=== PATIENT | female | born 1965 | race Caucasian/White ===

== ENCOUNTER 2019-10-26 20:17 | Inpatient (IN) | payer OTHER ==
[~2019-10-26] VITALS: Ht 172.7 cm; Wt 113.4 kg
[2019-10-26 20:22] VITALS: BP 124/67
--- NOTE | 2019-10-26 20:31 | NUR ---
PT TAKEN TO BED 3
--- NOTE | 2019-10-26 20:40 | NUR ---
54 Y/O FEMALE PRESENTS TO ER WITH RIGHT FOOT SWELLING, PAIN, AND MINIMALLY VISCOUS YELLOWISH, RED DRAINAGE FROM RIGHT BABY TOE. PT DENIES INJURY. C/O OF PAIN 04/02. PT STATES SHE LANCED AREA NEAR BABY TOE AND DRAINED, BUT FOOT IS STILL IN PAIN, AND OOZING. PT STATES SHE USED EPSOM SALT BATH, NEOSPORIN, RUBBING ALCOHOL, AND PEROXIDE, WITH NO RELIEF. DENIES SOB, COUGH. R/R EQUAL, AND UNLABORED. WILL CONTINUE TO MONITOR, SIDE RAIL X1 PMH: DM; LYME DISEASE; NEUROPATHY; HYPERLIPIDEMIA; ARTHRITIS; BRAIN TUMOR; THYROIDECTOMY/THYROID CANCER ALLERGIES: TYLENOL W/CODEINE
--- NOTE | 2019-10-26 21:10 | NUR ---
Dr. Robin examining patient.
[2019-10-26] MEDS ORDERED: MORPHINE SULFATE 4 MG/ML SYR IVP ONE (21:25)
[2019-10-26] MEDS ORDERED: NACL 0.9% IV ONE (21:25)
[2019-10-26] MEDS ORDERED: VANCOMYCIN 1,000 MG in DEXTROSE 5% 250 ML IV ONE (21:25)
[2019-10-26] MEDS ORDERED: VANCOMYCIN 1,000 MG VIAL ONE (21:51)
[2019-10-26 22:07] LABS: BASOPHILS # (AUTO) 0.4 K/uL (0.00-0.22); BASOPHILS % (AUTO) 2.1 % (0.0-2.0); EOSINOPHILS # (AUTO) 0.1 K/uL (0-0.4); EOSINOPHILS % (AUTO) 0.5 % (0.0-4.0); HEMATOCRIT 46.3 % (36-48); HEMOGLOBIN 15.3 g/dL (12.0-16.0); LYMPHOCYTES # (AUTO) 2.3 K/uL (2.5-16.5); LYMPHOCYTES % (AUTO) 13.5 % (20.5-51.1); MEAN CORPUSCULAR HEMOGLOBIN 28 pg (27-31); MEAN CORPUSCULAR HGB CONC 33 g/dL (33-37); MEAN CORPUSCULAR VOLUME 85.8 fL (80-94); MONOCYTES # (AUTO) 1.1 K/uL (0.8-1.0); MONOCYTES % (AUTO) 6.5 % (1.7-9.3); NEUTROPHILS # (AUTO) 13.2 K/uL (1.8-7.7); NEUTROPHILS % (AUTO) 77.4 % (42.2-75.2); PLATELET COUNT (AUTO) 307 K/uL (140-450); RED BLOOD CELL COUNT(AUTO) 5.39 MIL/uL (4.20-5.40); RED CELL DISTRIBUTION WIDTH 14.4 % (11.6-13.7)
[2019-10-26] MEDS ORDERED: HYDROcodone/APAP 5/325 MG 1 TAB TAB PO PRN (22:15)
[2019-10-26] MEDS ORDERED: ACETAMINOPHEN 325 MG TAB PO PRN (22:15)
[2019-10-26] MEDS ORDERED: DOCUSATE SODIUM 100 MG GELCAP PO PRN (22:15)
[2019-10-26] MEDS ORDERED: ONDANSETRON 4 MG/2 ML VIAL IM/IVP PRN (22:15)
[2019-10-26] MEDS ORDERED: DEXTROSE 50% 50 ML SYR IVP PRN (22:20)
[2019-10-26 22:23] LABS: ALBUMIN 3.1 g/dL (3.4-5.0); ANION GAP 15.9 (8-16); CARBON DIOXIDE 26.2 mmol/L (21-32); CREATININE 0.9 mg/dL (0.6-1.3); POTASSIUM 4.1 mmol/L (3.5-5.1); TOTAL BILIRUBIN 0.5 mg/dL (0.0-1.0)
[2019-10-26 22:42] LABS: PROTHROMBIN TIME 9.6 secs (10.8-13.4)
[2019-10-26 22:53] LABS: PHOSPHORUS 3.2 mg/dL (2.5-4.9); THYROID STIMULATING HORMONE 0.02 uIU/mL (0.34-3.74)
--- NOTE | 2019-10-26 23:10 | NUR ---
PT STATES PAIN UNRELIEVED, AFTER ADMINISTRATION OF 4 MG OF MORPHINE. PAIN 10/10. DR LIN MADE AWARE.
[2019-10-26 23:23] LABS: APPEARANCE,URINE CLEAR (CLEAR); BILIRUBIN,URINE NEGATIVE (NEGATIVE); BLOOD, URINE NEGATIVE (NEGATIVE); COLOR,URINE DARK YELLOW (YELLOW); LEUKOCYTE ESTERASE ,URINE NEGATIVE (NEGATIVE); NITRITE, URINE NEGATIVE (NEGATIVE); PH,URINE 5.5 (5.0-9.0); UGLUCOSE 3+ (NEGATIVE)
[2019-10-26 23:34] LABS: FINE GRANULAR CASTS,URINE 0-10 /LPF (None Seen)
[2019-10-26 23:40] LABS: BARBITURATE, URINE NEGATIVE ng/ml (NEG <=200)
--- NOTE | 2019-10-26 23:40 | NUR ---
RECEIVED FROM ED PT AAO X 4, PT AMBULATORY; W/ CELLULITIS FOOT/ANKLE AND DIABETIC ULCER ON THE R 5TH TOE. W/ 1 SCAB ON THE RIGHT SOLE; AND 2 SCABS ON THE LEFT SOLE OF THE FOOT. PT W/ ONGOING NS IVF STILL INFUSING W/ IV SITE ON THE RIGHT AC G 22, W/ ORDERS TO CONTINUE IVF FLUID OF TOTAL 3L TO BE INFUSED BOLUS. PT ORIENTED TO UNIT; POC DISCUSSED. PLACED IN THE LOW BED. CALL LIGHT W/IN REACH.
--- NOTE | 2019-10-26 23:40 | NUR ---
Patient will be admitted to care of DR. SWEENEY. Admited to MED SURG. Will go to room 111A. Belongings list completed. Report to ELENA MORENO.
[2019-10-26 23:41] LABS: BENZODIAZEPINE, URINE NEGATIVE ng/mL (NEG <=200); CANNABINOID, URINE NEGATIVE ng/mL (NEG <=50); COCAINE, URINE NEGATIVE ng/mL (NEG <=300); OPIATE, URINE POSITIVE ng/mL (NEG <=2000); PHENCYCLIDINE SCREEN,URINE NEGATIVE ng/mL (NEG <=25)
[2019-10-27] VITALS: BP 122/70
--- NOTE | 2019-10-27 | NUR ---
DR. ZAPATA AT BEDSIDE, HX AND PHYSICAL DONE. PHOTO TAKEN ON THE RIGHT FOOT CELLULITIS AND R 5TH TOE ULCER. MRSA SWAB DONE
[2019-10-27] MEDS ORDERED: VANCOMYCIN PER PHARMACY MC PRN (01:00)
[2019-10-27] MEDS ORDERED: DULO60EC PO (01:03)
[2019-10-27] MEDS ORDERED: MSCON15 PO (01:03)
[2019-10-27] MEDS ORDERED: ROSU10TA34 PO (01:03)
[2019-10-27] MEDS ORDERED: BACL10TA4 PO (01:03)
[2019-10-27] MEDS ORDERED: METF1000 PO (01:03)
[2019-10-27] MEDS ORDERED: LEVO0.124 PO (01:03)
[2019-10-27] MEDS ORDERED: TRAZ-343 PO (01:03)
[2019-10-27] MEDS ORDERED: FLUCONAZOLE 100 MG TAB PO SCH (01:40)
[2019-10-27] MEDS: NACL 0.9% 1,000 ML IV SCH ×2 (02:11→14:52)
--- NOTE | 2019-10-27 02:12 | NUR ---
STARTED THE IVF AT 60 ML/ HR. 3 LITERS ORDERED AT THE EMERGENCY DEPT AND THE NS 3 L HAD JUST FINISHED NOW
[2019-10-27] MEDS ORDERED: cefTRIAXone 1,000 MG VIAL ONE (02:24)
[2019-10-27] MEDS ORDERED: LEVOTHYROXINE 0.112 MG TAB ONE (05:21)
[2019-10-27 05:26] LABS: BASOPHILS # (AUTO) 0.2 K/uL (0.00-0.22); BASOPHILS % (AUTO) 1.8 % (0.0-2.0); EOSINOPHILS # (AUTO) 0.1 K/uL (0-0.4); HEMATOCRIT 40.2 % (36-48); HEMOGLOBIN 12.9 g/dL (12.0-16.0); LYMPHOCYTES # (AUTO) 1.8 K/uL (2.5-16.5); LYMPHOCYTES % (AUTO) 13.6 % (20.5-51.1); MEAN CORPUSCULAR HEMOGLOBIN 28 pg (27-31); MEAN CORPUSCULAR HGB CONC 32 g/dL (33-37); MEAN CORPUSCULAR VOLUME 86.8 fL (80-94); MONOCYTES % (AUTO) 7.7 % (1.7-9.3); NEUTROPHILS # (AUTO) 9.8 K/uL (1.8-7.7); NEUTROPHILS % (AUTO) 75.9 % (42.2-75.2); PLATELET COUNT (AUTO) 256 K/uL (140-450); RED BLOOD CELL COUNT(AUTO) 4.64 MIL/uL (4.20-5.40); RED CELL DISTRIBUTION WIDTH 14.4 % (11.6-13.7); WHITE BLOOD COUNT (AUTO) 12.9 K/uL (4.8-10.8)
[2019-10-27 05:38] LABS: ANION GAP 12.4 (8-16); CARBON DIOXIDE 25.4 mmol/L (21-32); CREATININE 0.8 mg/dL (0.6-1.3); POTASSIUM 3.8 mmol/L (3.5-5.1)
[2019-10-27] MEDS: LEVOTHYROXINE 0.112 MG TAB PO SCH (05:45)
[2019-10-27] MEDS: MORPHINE SULFATE 2 MG/ML SYR IVP PRN ×2 (05:51→20:44)
--- NOTE | 2019-10-27 05:52 | NUR ---
PT C/O OF PAIN ON FOOT 04/02 WILL GIVE MEDS ORDERED. WILL REASESS
[2019-10-27 06:00] VITALS: BP 131/62
--- NOTE | 2019-10-27 06:01 | NUR ---
PATIENT HAS BEEN SCREENED AND CATEGORIZED HIGH NUTRITION RISK. PATIENT WILL BE SEEN WITHIN 1-2 DAYS OF ADMISSION. 10/28/19-10/29/19 ATIYA MCCARTHY MS, RDN
[2019-10-27] MEDS: BLOOD GLUCOSE MONITORING 1 DEV DEV FS SCH ×4 (06:05→20:03)
[2019-10-27] MEDS: INSULIN LISPRO SLIDING SCALE 100 UNITS/ML VIAL SUBQ PRN ×4 (06:08→20:05)
--- NOTE | 2019-10-27 07:00 | NUR ---
PT ASLEEP, EASILY AROUSABLE, NO COMPLAINTS AT THIS TIME. FOR MONITORING BS
--- NOTE | 2019-10-27 07:32 | NUR ---
RECEIVED REPORT FROM SIFTING OPERATOR NURSE, ZEINAB, FOR CONTINUITY OF CARE. PT IS AA&OX4. RESPIRATIONS ARE EVEN, AND UNLABORED, BREATHING TO RA. RAC IV IS PATENT AND INTACT. RT FIFTH TOE DIABETIC ULCER NOTED. AMBULATORY WITH ASSIST. PHOTOENGRAVING ETCHER IS AT BEDSIDE. SAFETY MEASURES IN PLACE, CALL LIGHT WITHIN REACH, BED IN LOW POSITION. WILL CONTINUE TO MONITOR. Addendum: 10/27/19 at 0753 by Loretta Burt RN RECEIVED REPORT FROM SIFTING OPERATOR NURSEJOSH.
[2019-10-27 08:00] VITALS: BP 130/64
[2019-10-27] MEDS: MORPHINE TAB ER 15 MG TABER PO SCH ×3 (09:11→17:39)
--- NOTE | 2019-10-27 09:11 | NUR ---
PT COMPLAINED OF 8/10 PAIN. ADMINISTERED SCHEDULED MS CONTIN, WELL OTHER SCHEDULED AM MEDS. PT TOLERATED PO MEDS WELL. THE CLINICAL EDUCATION ACADEMIC COORDINATOR IS AT BEDSIDE, SPEAKING WITH PT. NO ACUTE DISTRESS NOTED. SAFETY MEASURES IN PLACE. WILL CONTINUE TO MONITOR.
[2019-10-27] MEDS: DULoxetine 30 MG CAPDR PO SCH (09:14)
[2019-10-27] MEDS: BACLOFEN 10 MG TAB PO SCH ×3 (09:15→17:39)
[2019-10-27] MEDS: LACTOBACILLUS RHAMNOSUS GG 1 EACH CAP PO SCH (09:16)
[2019-10-27] MEDS: metFORMIN 500 MG TAB PO SCH ×2 (09:16→20:14)
[2019-10-27] MEDS: VANCOMYCIN 1,500 MG in DEXTROSE 5% 500 ML IV SCH ×2 (12:02→22:17)
--- NOTE | 2019-10-27 12:29 | NUR ---
PT'S BGL WAS CHECKED; BGL: 310. COVERAGE GIVEN. NO ACUTE DISTRESS NOTED. PT IS SITTING UP IN BED, TALKING. SAFETY MEASURES IN PLACE; BED IN LOW POSITION, CALL LIGHT WITHIN REACH. WILL CONTINUE TO MONITOR.
--- NOTE | 2019-10-27 15:51 | NUR ---
PT'S SCHEDULED PO MEDS WERE GIVEN. PT TOLERATED PO MEDS WELL. MEDICATION EDUCATION GIVEN, PT VERBALIZED UNDERSTANDING. NO DISTRESS NOTED. SAFETY MEASURES IN PLACE; BED IN LOW POSITION, CALL LIGHT WITHIN REACH. WILL CONTINUE TO MONITOR.
[2019-10-27 16:00] VITALS: BP 118/73
--- NOTE | 2019-10-27 18:01 | NUR ---
PT'S SCHEDULED MEDS DUE, WERE GIVE. PT TOLERATED PO MEDS WELL. BLOOD SUGAR WAS CHECKED; BGL:162. COVERAGE WAS GIVEN. PT IS SITTING UP IN BED, TALKING. NO DISTRESS NOTED SAFETY MEASURES IN PLACE.
--- NOTE | 2019-10-27 19:27 | NUR ---
GAVE BEDSIDE REPORT TO NIGHTSHIFT NURSE FOR CONTINUITY OF CARE. PT IS IN STABLE CONDITION.
--- NOTE | 2019-10-27 19:28 | NUR ---
RECEIVED REPORT FROM AM SHIFT NURSEWOODY FOR CONTINUITY OF CARE. PT IS AA&OX4. PT IS ANXIOUS DIET IS NPO AT THIS TIME (SINCE AM). RESPIRATIONS ARE EVEN, AND UNLABORED, BREATHING TO RA. RAC IV IS PATENT AND INTACT. RT FIFTH TOE DIABETIC ULCER NOTED. AMBULATORY WITH ASSIST. SAFETY MEASURES IN PLACE, CALL LIGHT WITHIN REACH, BED IN LOW POSITION. WILL CONTINUE TO MONITOR.
--- NOTE | 2019-10-27 19:30 | NUR ---
PT ANXIOUS, RE: DIET; SAID SHE HAS NOT EATEN SINCE HIS A.M. AND PT INSISTS THAT SHE WANT'S FAST FOOD. [facility] PT INSISTS AND CALLED THE DELIVERY SERVICE HERSELF. INFORMED DR. ZAPATA, DR. SOSA.
[2019-10-27 20:00] VITALS: BP 108/66
[2019-10-27] MEDS: traZODone 50 MG TAB PO SCH (20:13)
[2019-10-27] MEDS: ATORVASTATIN 20 MG TAB PO SCH (20:13)
--- NOTE | 2019-10-27 20:44 | NUR ---
C/O OF PAIN ON 03/02 RIGHT FOOT AND LEFT 5TH TOE. PT ADMINISTERED MORPHINE. WILL REASSESS PT LATER
--- NOTE | 2019-10-27 22:29 | NUR ---
JENNI, DAUGHTER CALLED WANTS AN UPDATE; INFORMED HER ABOUT THE LEDT ARM SWELLING EDEMA, ANI I ALREADY INFORMED DR. ZAPATA YESTERDAY. DR. MCDERMOTT AM RESIDENT ALSO SAID THAT IT IS A CHRONIC PROBLEM. TAMARA ARTEAGA WANT TO KNOW ABOUT THAT FURTHER, BUT AWARE THAT HIS DAD HAS BILATERAL EDEMA. INFORMED THAT LEFT ARM EDEMA ID MORE BIGGER THAN THE RIGHT ARM EDEMA. SHE ALSO SAID THAT SHE WANTS US TO KNOW THAT HIS RIGHT 3RD TOE HAS A SCAB AND MONITOR IT, OR ANY OTHER CHANGES IN HIS RIGHT FOOT. Addendum: 10/27/19 at 2232 by Bianca Rhodes RN LEFT Addendum: 10/27/19 at 2238 by Bianca Rhodes RN PLS DELETE WRONG PATIENT
[2019-10-28] VITALS: BP 136/68
[2019-10-28] MEDS: NACL 0.9% 1,000 ML IV SCH (01:35)
[2019-10-28] MEDS: MORPHINE SULFATE 2 MG/ML SYR IVP PRN ×3 (03:12→20:43)
--- NOTE | 2019-10-28 03:12 | NUR ---
C/O OF 03/02 R FOOT AND 5TH TOE PAIN, ADMINISTERED PAIN MED, WILL REASSESS LATER
[2019-10-28 04:00] VITALS: BP 108/50
--- NOTE | 2019-10-28 04:01 | NUR ---
PT WENT TO BATHROOM VOIDING,AMBULATORY W/ SUZETTEBY ASSIST. WILL CONTINUE TO MONITOR.
[2019-10-28] MEDS: LEVOTHYROXINE 0.112 MG TAB PO SCH (05:34)
[2019-10-28] MEDS: BLOOD GLUCOSE MONITORING 1 DEV DEV FS SCH ×4 (05:37→20:35)
[2019-10-28] MEDS: INSULIN LISPRO SLIDING SCALE 100 UNITS/ML VIAL SUBQ PRN ×3 (05:48→20:56)
--- NOTE | 2019-10-28 06:14 | NUR ---
PT AWAKE, A O X 4, AMBULATORY, ASLEEP BUT EASILY AWAKENED BY VERBAL STIMULI. PT FOR I & D TODAY. ENDORSED TO NEXT SHIFT.
[2019-10-28 06:39] LABS: BASOPHILS # (AUTO) 0.1 K/uL (0.00-0.22); BASOPHILS % (AUTO) 1.4 % (0.0-2.0); EOSINOPHILS # (AUTO) 0.1 K/uL (0-0.4); EOSINOPHILS % (AUTO) 2.1 % (0.0-4.0); HEMATOCRIT 38.4 % (36-48); HEMOGLOBIN 12.6 g/dL (12.0-16.0); LYMPHOCYTES # (AUTO) 1.6 K/uL (2.5-16.5); LYMPHOCYTES % (AUTO) 22.4 % (20.5-51.1); MEAN CORPUSCULAR HEMOGLOBIN 28 pg (27-31); MEAN CORPUSCULAR HGB CONC 33 g/dL (33-37); MEAN CORPUSCULAR VOLUME 86.5 fL (80-94); MONOCYTES # (AUTO) 0.8 K/uL (0.8-1.0); MONOCYTES % (AUTO) 10.7 % (1.7-9.3); NEUTROPHILS # (AUTO) 4.5 K/uL (1.8-7.7); NEUTROPHILS % (AUTO) 63.4 % (42.2-75.2); PLATELET COUNT (AUTO) 258 K/uL (140-450); RED BLOOD CELL COUNT(AUTO) 4.44 MIL/uL (4.20-5.40); RED CELL DISTRIBUTION WIDTH 14.3 % (11.6-13.7)
[2019-10-28 06:40] LABS: ANION GAP 14.1 (8-16); CARBON DIOXIDE 26.7 mmol/L (21-32); CREATININE 0.7 mg/dL (0.6-1.3); POTASSIUM 3.8 mmol/L (3.5-5.1)
[2019-10-28 06:50] LABS: PHOSPHORUS 3.4 mg/dL (2.5-4.9)
--- NOTE | 2019-10-28 07:10 | NUR ---
PT IS CURRENTLY AWAKE, ALERT, AND LAYING IN BED WITH NO SIGNS OF DISTRESS NOTED. RESPIRATIONS ARE EVEN AND UNLABORED, PT IS ON RA WITH NO DIFFICULTIES BREATHING. SKIN IS NOT INTACT WITH R. FIFTH TOE OPEN DM WOUND AND BILATERAL SCABS ON SOLES OF FEET. IV IS ASYMPTOMATIC, PATENT, AND INFUSING PER ORDER. SAFETY MEASURES IN PLACE, CALL LIGHT WITHIN REACH, AND WILL CONTINUE TO MONITOR.
[2019-10-28 08:00] VITALS: BP 128/67
[2019-10-28] MEDS: LACTOBACILLUS RHAMNOSUS GG 1 EACH CAP PO SCH (08:37)
[2019-10-28] MEDS: DULoxetine 30 MG CAPDR PO SCH (08:37)
[2019-10-28] MEDS: metFORMIN 500 MG TAB PO SCH ×2 (08:38→20:34)
[2019-10-28] MEDS: BACLOFEN 10 MG TAB PO SCH ×3 (08:38→17:44)
[2019-10-28] MEDS: MORPHINE TAB ER 15 MG TABER PO SCH ×3 (08:38→18:00)
--- NOTE | 2019-10-28 08:40 | NUR ---
MEDICATIONS ADMINISTERED PER ORDER AND TOLERATED WELL. PT IS ALERT, AWAKE, AND COMPLAINS OF 8/10 PAIN TOE PAIN. MEDICATED WITH MORPHINE ER PER ORDERS. SAFETY MEASURES IN PLACE AND WILL CONTINUE TO MONITOR.
[2019-10-28] MEDS: VANCOMYCIN 1,500 MG in DEXTROSE 5% 500 ML IV SCH (10:20)
--- NOTE | 2019-10-28 11:12 | NUR ---
PT IS BEING TAKEN TO SURGERY FOR I&D. PT IS ALERT, AWAKE, AND COMPLAINS OF PAIN. BLOOD GLUCOSE WAS NOT CHECKED.
--- NOTE | 2019-10-28 11:23 | NUR ---
WOUND CONSULT NOT DONE, PT. IS SEEN AND FOLLOW UP BY CERTIFIED MASTER LOCKSMITH IN HOUSE AT THIS TIME.
[2019-10-28] MEDS ORDERED: BUPIVACAINE-MPF 0.25% 30 ML VIAL INJ ONE (12:11)
[2019-10-28] MEDS ORDERED: LIDOCAINE 1% 500 MG/50 ML VIAL ONE (12:11)
[2019-10-28] MEDS ORDERED: PROPOFOL 200 MG/20 ML VIAL IV ONE (12:33)
[2019-10-28] MEDS ORDERED: LIDOCAINE 2% 100 MG/5 ML SYR IVP ONE (12:33)
[2019-10-28] MEDS ORDERED: SEVOFLURANE 250 ML BTL INH ONE (12:33)
[2019-10-28] MEDS ORDERED: ONDANSETRON 4 MG/2 ML VIAL ONE (12:33)
[2019-10-28] MEDS ORDERED: fentaNYL 0.05 MG/ML VIAL ONE (12:33)
[2019-10-28] MEDS ORDERED: MIDAZOLAM 2 MG/2 ML VIAL ONE (12:33)
[2019-10-28] MEDS ORDERED: NACL 0.9% 1,000 ML IV SCH (13:24)
[2019-10-28] MEDS ORDERED: ONDANSETRON 4 MG/2 ML VIAL IVP PRN (13:25)
[2019-10-28] MEDS ORDERED: BLOOD GLUCOSE MONITORING 1 DEV DEV FS SCH (13:25)
[2019-10-28] MEDS ORDERED: MEPERIDINE 25 MG/ML SYR IVP PRN (13:25)
[2019-10-28] MEDS ORDERED: HYDROmorphone 1 MG/ML AMP IVP PRN (13:30)
--- NOTE | 2019-10-28 14:34 | NUR ---
DC [age] YRS OLD FEMALE PATIENT WAS ADMITTED FROM HOME WITH A DX OF RT FOOT CELLULITIS. PT HAS A HX OF DM, FIBROMYALGIA ,NEUROPATHY RT FOOT ULCER AND HLD . XR RT TOES SHOWED NO FRACTURE DEGENERATIVE CHANGES BLOOD CULTURE PENDING STARTED ON VANCOMYCIN , BILATERAL LOWE EXT ARTERIAL AND VENOUS DOPPLER SHOWED MILD PERIPHERAL VASCULAR DISEASE IN THE RIGHT LOWER EXT WITH 50 -75% STENOSIS OF THE ANTERIOR TIBIAL ARTERY. CONSULTED WITH WOUND AND PODIATRY. DC PLAN TO GO HOME WHEN STABLE CM TO FOLLOW. Addendum: 10/29/19 at 1206 by Kay Lopez CM RECEIVED AN ORDER FOR HOME HEALTH FOR WOUND CARE. MET WITH THE PATIENT AT THE BEDSIDE TO DISCUSS DC PLANNING AND IS IN AGREEMENT. IMM AND CHOICE OF VENDOR LETTERS DISCUSSED WELL, SIGNED AND PLACED IN THE CHART. COPY PROVIDED TO THE PATIENT. Addendum: 10/29/19 at 1327 by Kay Lopez CM CONFIRMED ADDRESS ON FILE WITH THE PATIENT. SHE STATED HER ADDRESS TEMPORARILY IS [place] AND THE PHONE NUMBER IS [phone]. PER [facility], THEY RECEIVED THE REFERRAL AND WILL REVIEW. I INFORMED HER THAT THE DC PLAN WILL BE TOMORROW OR TH. SHE STATED TO INFORM HER ONCE THERE IS A DEFINITE DC PLAN. SHE ALSO REQUESTED FOR SPECIFIC WOUND CARE ORDERS. PRIMARY RN YANICK MADE AWARE TO GET WOUND CARE ORDERS FROM PODIATRY. Addendum: 10/29/19 at 1442 by Kay Lopez CM PER [facility], THEY ARE NOT ABLE TO ACCEPT THE PATIENT DUE TO THEY DO NOT HAVE A NURSE WHO CAN PROVIDE SERVICES TO THE PATIENT'S ADDRESS ([place]). CONTACTED TRISHA OF [facility] AT [phone] REGARDING REFERRAL. SHE STATED THEY SERVICE THE AREA AND TO GO AHEAD AND FAX OVER REFERRAL AND THEY WILL REVIEW. REFERRAL SENT. Addendum: 10/30/19 at 1109 by Kay Lopez CM PER TRISHA OSBORNE [facility], THEY ARE NOT ABLE TO ACCEPT PATIENT DUE TO THEY DO NOT HAVE A NURSE THAT GOES TO [place]. CONTACTED [facility] AT [phone], ABLE TO SPEAK TO HerotainmentCEMENTER. SHE STATED [facility]. REQUESTED TO SEND OVER REFERRAL AND THEY WILL REVIEW. REFERRAL SENT TO [phone]. WILL FOLLOW UP. Addendum: 10/30/19 at 1455 by Kay Lopez CM RECEIVED A CALL FROM MARIANELA OF [facility], STATING THAT THEY ARE ABLE TO ACCEPT THE PATIENT AND JUST TO INFORM THEM ONCE PATIENT IS READY FOR DC. PRIMARY RN AND CHARGE NURSE MADE AWARE. DR. MCDERMOTT MADE AWARE WELL. Addendum: 10/31/19 at 1138 by Kay Lopez CM PER DR. MCDERMOTT, PATIENT WILL BE STAYING HERE TODAY PENDING WOUND CULTURES. HE ALSO STATED HE WAS ABLE TO DISCUSS THE CASE WITH PODIATRY WHICH TOLD HIM THE CULTURES WILL BE BACK TOMORROW. CONTACTED LAB TO FOLLOW UP ON WOUND CULTURES, ABLE TO SPEAK TO TERRIE. SHE STATED THE RESULTS WILL BE IN PROBABLY TODAY OR TOMORROW. Addendum: 10/31/19 at 1143 by Kay Lopez CM MARIANELA OBSORNE [facility] AT [phone], MADE AWARE THAT THE PATIENT WILL BE STAYING FOR TODAY. SHE STATED SHE CONTACTED THE PATIENT YESTERDAY AND PATIENT WAS CLAIMING THAT SHE IS IN A LOT OF PAIN AND DID NOT WANT TO TALK TO HER. SHE ALSO STATED THAT I INFORMED HER SO SHE WILL NOT BE BOTHERING THE PATIENT TODAY. I INFORMED HER THAT I WILL LET HER KNOW IF THE PATIENT WILL BE DISCHARGING TOMORROW. Addendum: 04/10/20 at 1124 by Kay Lopez FOR POSSIBLE DC BACK TO HOME WITH HOME HEALTH TODAY. WILL FOLLOW UP. Addendum: 11/01/19 at 1423 by Dmitriy Flores SS DUTCH contacted [facility] [phone] and spoke to Ellen who stated that she will contact patient to coordinate nursing visit. DUTCH informed nurse. No further needs identified.
[2019-10-28 14:40] VITALS: BP 133/72
--- NOTE | 2019-10-28 14:40 | NUR ---
PT IS AWAKE, ALERT, ALERT AND JUST CAME BACK FROM SURGERY. 1200 & 1300 MEDICATIONS WERE NOT ADMINISTERED DUE TO SURGERY. PT COMPLAINS OF 6/10 PAIN IN FOOT. VITAL SIGNS WILL BE MONITORED FOR TWO HOURS.
--- NOTE | 2019-10-28 15:30 | NUR ---
PT COMPLAINS OF SEVERE 9/10 FOOT PAIN. PAIN MEDICATION MORPHINE IV WAS GIVEN INSTEAD OF MORPHINE ER TAB. WILL REASSESS PT IN ONE HOUR. VITAL SIGNS ARE STABLE
--- NOTE | 2019-10-28 16:18 | NUR ---
10/28/19 RD INITIAL ASSESSMENT COMPLETED PLEASE REFER TO NUTRITION ASSESSMENT UNDER CARE ACTIVITY FOR ESTIMATED NUTRITIONAL NEEDS. 1. CONTINUE CCHO 60GM DIET TOLERATED 2. RECOMMEND YANET BID 3. RD PROVIDED NUTRITION EDUCATION ON DIABETES 4. RD TO FOLLOW-UP 5-7 DAYS, LOW RISK AMERICO SILVA, RD
--- NOTE | 2019-10-28 16:32 | NUR ---
PT STATES THAT PAIN HAS REDUCED TO 5/10. PT HAS ALREADY ORDERED DINNER AND WENT TO THE RESTROOM. VITAL SIGNS REMAIN STABLE.
--- NOTE | 2019-10-28 18:05 | NUR ---
ADMINISTERED MEDICATION PER ORDER AND TOLERATED WELL. BLOOD SUGAR WAS HIGH AND NEEDED INSULIN COVERAGE OF 4 UNITS. PAIN IS AT A 7/10 AND MEDICATED WITH MORPHINE ER TAB
--- NOTE | 2019-10-28 19:10 | NUR ---
PT AWAKE ALERT AND LAYING DOWN IN BED. ENDORSED TO LIP CUTTER NURSE. PT IS IN STABLE CONDITION
--- NOTE | 2019-10-28 19:11 | NUR ---
RECEIVED BEDSIDE REPORT FROM DAY SHIFT NURSE. PT IS CURRENTLY AWAKE, ALERT, AND LAYING IN BED WITH NO SIGNS OF DISTRESS NOTED. RESPIRATIONS ARE EVEN AND UNLABORED, PT IS ON RA WITH NO DIFFICULTIES BREATHING. SKIN IS NOT INTACT WITH TOE I&D. IV SITE ON LH 22G, PATENT, INTACT AND ASYMPTOMATIC. SAFETY MEASURES IN PLACE, CALL LIGHT WITHIN REACH, AND WILL CONTINUE TO MONITOR.
--- NOTE | 2019-10-28 20:16 | NUR ---
PATIENT REFUSED INCENTIVE SPIROMETER. SAID SHE WONT DO IT. NO SOB NOTED
[2019-10-28] MEDS: traZODone 50 MG TAB PO SCH (20:34)
[2019-10-28] MEDS: ATORVASTATIN 20 MG TAB PO SCH (20:34)
[2019-10-28] MEDS: VANCOMYCIN HCL 1.25 GM in DEXTROSE 5% 250 ML IV SCH (20:35)
--- NOTE | 2019-10-28 20:57 | NUR ---
GIVEN VANCOMYCIN, TRAZODONE, METFORMIN, LIPITOR, HEPARIN. BS CHECKED, 242, GIVEN INSULIN SLIDING SCALE. PT C/O PAIN 9/10 ON FEET. GIVEN MORPHINE MD ORDERED. PT TOLERATED WELL.
--- NOTE | 2019-10-28 23:15 | NUR ---
PT C/O PAIN ON IV SITE, SWOLLEN. REMOVED IV LINE, CANNULA INTACT. START NEW IV ON RFA, 22G, GOOD BLOOD RETURN NOTED.
[2019-10-29] VITALS: BP 125/65
[2019-10-29] MEDS: NACL 0.9% 1,000 ML IV SCH ×2 (00:36→16:26)
--- NOTE | 2019-10-29 00:36 | NUR ---
GIVEN ROCEPHIN MD ORDERED. PT TOLERATED WELL.
[2019-10-29] MEDS: MORPHINE SULFATE 2 MG/ML SYR IVP PRN ×5 (03:19→21:25)
--- NOTE | 2019-10-29 03:19 | NUR ---
PT C/O 03/02 PAIN, GIVEN MORPHINE MD ORDERED. PT TOLERATED WELL.
--- NOTE | 2019-10-29 04:19 | NUR ---
PT SLEEPING IN BED COMFORTABLY. NO ACUTE DISTRESS NOTED.
[2019-10-29] MEDS: VANCOMYCIN HCL 1.25 GM in DEXTROSE 5% 250 ML IV SCH ×3 (05:37→20:46)
[2019-10-29] MEDS: INSULIN LISPRO SLIDING SCALE 100 UNITS/ML VIAL SUBQ PRN ×4 (05:52→20:39)
[2019-10-29] MEDS: BLOOD GLUCOSE MONITORING 1 DEV DEV FS SCH ×4 (05:53→21:02)
--- NOTE | 2019-10-29 05:53 | NUR ---
GIVEN ZOSYN MD ORDERED. BS CHECKED, 331, INSULIN GIVEN SLIDING SCALE. PT TOLERATED WELL.
--- NOTE | 2019-10-29 07:10 | NUR ---
RECEIVED REPORT FROM ELENA ALAN. PT AAOX4, NO C/O PAIN. IV ON RT FA 22 GA RUNNING IVF PER ORDER. PT ON RA, RESPIRATIONS EVEN AND UNLABORED. ABD SOFT, ACTIVE BS. SKIN IS INTACT, WARM TO TOUCH. SAFETY MEASURES IN PLACE, CALL LIGHT WITHIN REACH. REVIEWED POC WITH PT, PT VERBALIZED UNDERSTANDING. Addendum: 10/29/19 at 0756 by Yana Hogue RN 10/29/19 0710 CLARIFICATION: PT HAS BILATERAL FEET WOUND DRESSING, S/P I&D ON RT 5TH TOE AND LT BIG TOE ON 10/27.
--- NOTE | 2019-10-29 07:20 | NUR ---
ENDORSED PT TO DAY SHIFT NURSE. PT IN STABLE CONDITION.
[2019-10-29 07:21] LABS: ANION GAP 12.4 (8-16); CARBON DIOXIDE 27.5 mmol/L (21-32); CREATININE 0.7 mg/dL (0.6-1.3); POTASSIUM 3.9 mmol/L (3.5-5.1)
[2019-10-29 07:23] LABS: BASOPHILS # (AUTO) 0.1 K/uL (0.00-0.22); EOSINOPHILS # (AUTO) 0.2 K/uL (0-0.4); EOSINOPHILS % (AUTO) 2.6 % (0.0-4.0); HEMATOCRIT 40.6 % (36-48); HEMOGLOBIN 13.3 g/dL (12.0-16.0); LYMPHOCYTES # (AUTO) 2.1 K/uL (2.5-16.5); LYMPHOCYTES % (AUTO) 27.9 % (20.5-51.1); MEAN CORPUSCULAR HEMOGLOBIN 28 pg (27-31); MEAN CORPUSCULAR HGB CONC 33 g/dL (33-37); MEAN CORPUSCULAR VOLUME 86.9 fL (80-94); MONOCYTES # (AUTO) 0.9 K/uL (0.8-1.0); MONOCYTES % (AUTO) 11.9 % (1.7-9.3); NEUTROPHILS # (AUTO) 4.2 K/uL (1.8-7.7); NEUTROPHILS % (AUTO) 56.6 % (42.2-75.2); PLATELET COUNT (AUTO) 302 K/uL (140-450); RED BLOOD CELL COUNT(AUTO) 4.67 MIL/uL (4.20-5.40); RED CELL DISTRIBUTION WIDTH 14.5 % (11.6-13.7); WHITE BLOOD COUNT (AUTO) 7.4 K/uL (4.8-10.8)
[2019-10-29 07:35] LABS: MAGNESIUM 1.8 mg/dL (1.8-2.4); PHOSPHORUS 3.8 mg/dL (2.5-4.9)
[2019-10-29 08:00] VITALS: BP 118/56
[2019-10-29] MEDS: metFORMIN 500 MG TAB PO SCH ×2 (08:26→20:33)
[2019-10-29] MEDS: BACLOFEN 10 MG TAB PO SCH ×3 (08:26→16:25)
[2019-10-29] MEDS: MORPHINE TAB ER 15 MG TABER PO SCH ×3 (08:27→16:25)
[2019-10-29] MEDS: DULoxetine 30 MG CAPDR PO SCH (08:27)
[2019-10-29] MEDS: LACTOBACILLUS RHAMNOSUS GG 1 EACH CAP PO SCH (08:27)
--- NOTE | 2019-10-29 08:50 | NUR ---
ADMINISTERED MEDICATIONS PER ORDER, PT VERBALIZED UNDERSTANDING OF INDICATIONS AND POTENTIAL SIDE EFFECTS.
--- NOTE | 2019-10-29 11:10 | NUR ---
DR. MCDERMOTT AT BEDSIDE, PT WAS UPDATE REGARDING CARE PLAN. ALL QUESTIONS ANSWERED AND CLARIFIED.
--- NOTE | 2019-10-29 13:20 | NUR ---
PT SAYS, "I WANT TO TAKE A SHOWER LATER ON TODAY OR AT LEAST BEFORE I LEAVE." WILL ENDORSE TO ACCOUNTS PAYABLE COORDINATOR NURSE.
--- NOTE | 2019-10-29 15:10 | NUR ---
PT ASLEEP IN BED, LYING ON RIGHT LATERAL SIDE, RESPIRATIONS EVEN AND UNLABORED ON RA.
[2019-10-29 16:00] VITALS: BP 119/64
[2019-10-29] MEDS ORDERED: FLUCONAZOLE 100 MG TAB PO SCH (16:00)
--- NOTE | 2019-10-29 16:25 | NUR ---
ADMINISTERED MEDICATIONS PER ORDER, PT VERBALIZED UNDERSTANDING OF INDICATIONS AND POTENTIAL SIDE EFFECTS.
--- NOTE | 2019-10-29 18:13 | NUR ---
ADMINISTERED MORPHINE PER ORDER, WILL REASSESS PAIN LEVEL WITHIN 1 HOUR.
--- NOTE | 2019-10-29 19:20 | NUR ---
ENDORSED PT TO ELENA GONSALEZ, PT HAS NO S/S OF DISTRESS OR C/O PAIN.
--- NOTE | 2019-10-29 19:21 | NUR ---
RECD. SITTING ON THE CHAIR, AWAKE, A/OX4. RESPIRATION EVEN AND UNLABORED. IV OF NS AT 60 ML/HR INFUSING, RIGHT FOREARM G22. INCISION ON BILATERAL FEET, BOTH COVERED WITH DRESSING WITH JOVANI WRAPPED BANDAGE. PAIN ON BOTH FEET 08/02, WAS MEDICATED BY AM NURSE. PLAN OF CARE FOR THE SHIFT DISCUSSED. VERBALIZED UNDERSTANDING.
--- NOTE | 2019-10-29 19:21 | NUR ---
Patient's Plan of Care was discussed and reviewed with K9 HANDLER: NICHELLE. SAFETY MEASURES ARE IN PLACE. CALL LIGHT WITHIN REACH.
[2019-10-29] MEDS: traZODone 50 MG TAB PO SCH (20:33)
[2019-10-29] MEDS: ATORVASTATIN 20 MG TAB PO SCH (20:33)
--- NOTE | 2019-10-29 20:38 | NUR ---
DUE MEDICATIONS GIVEN, BS CHECKED - 266, MEDICATED WITH INSULIN PER SLIDING SCALE. SNACK GIVEN, ATE 100%.
--- NOTE | 2019-10-29 20:46 | NUR ---
MARIA DOLORES MCCORMACK NOW INFUSING PER ORDERS. PT WITH NO S/S OF DISTRESS. CALL LIGHT IS WITHIN REACH.
[2019-10-29 21:00] VITALS: BP 125/67
--- NOTE | 2019-10-30 | NUR ---
SLEEPING COMFORTABLY IN BED.
[2019-10-30] MEDS: MORPHINE SULFATE 2 MG/ML SYR IVP PRN ×5 (01:32→20:46)
--- NOTE | 2019-10-30 03:41 | NUR ---
NAUSEATED, MEDICATED WITH ZOFRAN IVP BY ELENA BALL.
--- NOTE | 2019-10-30 03:55 | NUR ---
IV INFILTRATED. NEW IV LINE INSERTED BY ELENA SHERMAN AT THE LEFT WRIST G24.
--- NOTE | 2019-10-30 04:20 | NUR ---
NO NAUSEA NOTED, RESTING COMFORTABLY IN BED.
[2019-10-30] MEDS: NACL 0.9% 1,000 ML IV SCH ×2 (04:25→09:32)
[2019-10-30] MEDS: VANCOMYCIN HCL 1.25 GM in DEXTROSE 5% 250 ML IV SCH (04:48)
--- NOTE | 2019-10-30 04:50 | NUR ---
COMPLAINING THAT SHE GETS MORPHINE 15 MG PO 4 X A DAY AT HOME. EXPLAINED THAT MD INCREASED HER IV MORPHINE FROM 1 MG TO 2 MG LAST NIGHT. STATED STILL IT IS NOT ENOUGH BECAUSE I'M GETTING MORPHINE PO AND DILAUDID PO AT HOME. ADVISED TO WAIT FOR THE DOCTOR'S ROUND THIS MORNING AND TELL MD ABOUT IT.
[2019-10-30] MEDS: BLOOD GLUCOSE MONITORING 1 DEV DEV FS SCH ×4 (06:02→20:33)
[2019-10-30] MEDS: INSULIN LISPRO SLIDING SCALE 100 UNITS/ML VIAL SUBQ PRN ×4 (06:03→20:34)
--- NOTE | 2019-10-30 06:28 | NUR ---
PATIENT COMPLAINED OF FOOT PAIN 04/02. PRN PAIN MED ADMINISTERED PER ORDER. NO ASE NOTED. WILL CONTINUE TO MONITOR.
--- NOTE | 2019-10-30 07:25 | NUR ---
RECEIVED REPORT FROM QUALITY SUPERVISOR NURSE BECKY. PT RESTING IN BED, AOX4. DISCUSSED PLAN OF CARE AND PT VERBALIZED UNDERSTANDING. IV SITE LEFT WRIST #24G RUNNING NS @ 60ML/HR. INCISION ON BILATERAL FEET, BOTH COVERED WITH DRESSING WITH JOVANI WRAPPED BANDAGE. NO S/S OF RESPIRATORY DISTRESS OR DISCOMFORT NOTED AT THIS TIME. WILL CONTINUE TO MONITOR.
--- NOTE | 2019-10-30 07:25 | NUR ---
RESTING IN BED, STILL COMPLAINING OF PAIN, 03/02, PAIN MEDICATION GIVEN AT 0628. ENDORSED TO AM SHIFT NURSE FOR FOLLOW UP WITH MD AND FOR CONTINUITY OF CARE. CONDITION REMAIN STABLE. ALL NEEDS ATTENDED.
[2019-10-30 08:00] VITALS: BP 113/62
[2019-10-30] MEDS: metFORMIN 500 MG TAB PO SCH ×2 (08:49→20:53)
[2019-10-30] MEDS: DULoxetine 30 MG CAPDR PO SCH (08:49)
[2019-10-30] MEDS: BACLOFEN 10 MG TAB PO SCH ×3 (08:49→17:01)
[2019-10-30] MEDS: LACTOBACILLUS RHAMNOSUS GG 1 EACH CAP PO SCH (08:49)
[2019-10-30] MEDS: MORPHINE TAB ER 15 MG TABER PO SCH ×3 (08:49→17:01)
--- NOTE | 2019-10-30 08:51 | NUR ---
SCHEDULED MEDICATION GIVEN AND TOLERATED WELL. NO S/S OF RESPIRATORY DISTRESS OR DISCOMFORT NOTED AT THIS TIME. WILL CONTINUE TO MONITOR.
[2019-10-30 09:08] LABS: BASOPHILS # (AUTO) 0.1 K/uL (0.00-0.22); BASOPHILS % (AUTO) 1.6 % (0.0-2.0); EOSINOPHILS # (AUTO) 0.2 K/uL (0-0.4); EOSINOPHILS % (AUTO) 2.2 % (0.0-4.0); HEMATOCRIT 38.5 % (36-48); HEMOGLOBIN 12.5 g/dL (12.0-16.0); LYMPHOCYTES # (AUTO) 2.3 K/uL (2.5-16.5); LYMPHOCYTES % (AUTO) 28.9 % (20.5-51.1); MEAN CORPUSCULAR HEMOGLOBIN 28 pg (27-31); MEAN CORPUSCULAR HGB CONC 32 g/dL (33-37); MEAN CORPUSCULAR VOLUME 86.2 fL (80-94); MONOCYTES # (AUTO) 0.8 K/uL (0.8-1.0); MONOCYTES % (AUTO) 10.8 % (1.7-9.3); NEUTROPHILS # (AUTO) 4.4 K/uL (1.8-7.7); NEUTROPHILS % (AUTO) 56.5 % (42.2-75.2); PLATELET COUNT (AUTO) 297 K/uL (140-450); RED BLOOD CELL COUNT(AUTO) 4.47 MIL/uL (4.20-5.40); RED CELL DISTRIBUTION WIDTH 14.2 % (11.6-13.7); WHITE BLOOD COUNT (AUTO) 7.8 K/uL (4.8-10.8)
[2019-10-30 09:49] LABS: ANION GAP 12.1 (8-16); CARBON DIOXIDE 28.1 mmol/L (21-32); CREATININE 0.7 mg/dL (0.6-1.3); POTASSIUM 4.2 mmol/L (3.5-5.1)
[2019-10-30 10:37] LABS: MAGNESIUM 1.7 mg/dL (1.8-2.4); PHOSPHORUS 4.2 mg/dL (2.5-4.9)
--- NOTE | 2019-10-30 11:30 | NUR ---
PT C/O PAIN 03/02- MORPHINE GIVEN AND TOLERATED WELL. NO S/S OF RESPIRATORY DISTRESS OR DISCOMFORT NOTED AT THIS TIME. WILL CONTINUE TO MONITOR.
--- NOTE | 2019-10-30 11:43 | NUR ---
BLOOD GLUCOSE 282- INSULIN COVERAGE GIVEN AND TOLERATED WELL. NO S/S OF RESPIRATORY DISTRESS OR DISCOMFORT NOTED AT THIS TIME. WILL CONTINUE TO MONITOR.
--- NOTE | 2019-10-30 13:02 | NUR ---
SCHEDULED MEDICATION GIVEN AND TOLERATED WELL. NO S/S OF RESPIRATORY DISTRESS OR DISCOMFORT NOTED AT THIS TIME. WILL CONTINUE TO MONITOR.
[2019-10-30] MEDS ORDERED: MAGNESIUM OXIDE 400 MG TAB PO SCH (14:00)
--- NOTE | 2019-10-30 14:20 | NUR ---
MAG 1.7- MAG OX GIVEN AND TOLERATED WELL.
--- NOTE | 2019-10-30 15:00 | NUR ---
PT TO BE TRANSFERRED TO [facility]. PT IS AWARE.
[2019-10-30 16:00] VITALS: BP 116/65
--- NOTE | 2019-10-30 16:12 | NUR ---
P.T. NOTES P.T. CRISTIN CALDERON COMPLETED; ENDORSED TO NURSING. Addendum: 10/30/19 at 1613 by Lilia Ramirez PT Amended: Links added.
[2019-10-30] MEDS: VANCOMYCIN 1,000 MG in NACL 0.9% 250 ML IV SCH ×2 (16:29→23:29)
--- NOTE | 2019-10-30 16:29 | NUR ---
SCHEDULED MEDICATION VANCOCIN GIVEN AND TOLERATED WELL. NO S/S OF RESPIRATORY DISTRESS OR DISCOMFORT NOTED AT THIS TIME. WILL CONTINUE TO MONITOR.
--- NOTE | 2019-10-30 17:00 | NUR ---
BLOOD GLUCOSE 221- INSULIN COVERAGE GIVEN AND TOLERATED WELL. NO S/S OF RESPIRATORY DISTRESS OR DISCOMFORT NOTED AT THIS TIME. WILL CONTINUE TO MONITOR.
--- NOTE | 2019-10-30 19:15 | NUR ---
RECEIVED PT FROM SIDNEY RN PT IS AAOX4 AMBULATORY , BILATERAL LE WITH DRESSING DRY AND INTACT, IV ON LEFT WRIST INFUSING WELL , NOT DISTRESS NOTED AT THIS TIME INITIAL ASSESSMENT DONE
[2019-10-30] MEDS: ATORVASTATIN 20 MG TAB PO SCH (20:51)
[2019-10-30] MEDS: traZODone 50 MG TAB PO SCH (20:51)
--- NOTE | 2019-10-30 21:30 | NUR ---
BLOOD SUGAR TEST 203 COVERAGE WITH 4 UNITS SUBQ HUMALOG FOLLOW PROTOCOL
[2019-10-31] VITALS: BP 120/65
--- NOTE | 2019-10-31 | NUR ---
PT WATCHING TV, NOT DISTRESS NOTED AT THIS TIME, IV INFUSING WELL
[2019-10-31] MEDS: NACL 0.9% 1,000 ML IV SCH ×2 (00:47→18:52)
[2019-10-31] MEDS: MORPHINE SULFATE 2 MG/ML SYR IVP PRN ×4 (01:12→21:08)
--- NOTE | 2019-10-31 04:00 | NUR ---
PT HAS BEEN MONITORING CLOSE, SLEEPING WELL NOT DISTRESS NOTED AT THIS TIME BILATERAL LOWER LEGS WITH DRESSING DRY AND INTACT
[2019-10-31] MEDS: BLOOD GLUCOSE MONITORING 1 DEV DEV FS SCH ×4 (05:57→21:00)
[2019-10-31] MEDS: INSULIN LISPRO SLIDING SCALE 100 UNITS/ML VIAL SUBQ PRN ×3 (05:59→21:04)
--- NOTE | 2019-10-31 06:19 | NUR ---
PT RESTING ON BED DENIES ANY PAIN AT THIS TIME VOIDING WELL
--- NOTE | 2019-10-31 06:32 | NUR ---
BLOOD SUGAR TEST 227 COVERAGE WITH 4 UNITS SUBQ HUMALOG FOLLOW PROTOCOL
[2019-10-31 07:24] LABS: ANION GAP 10.2 (8-16); CARBON DIOXIDE 29.8 mmol/L (21-32); CREATININE 0.7 mg/dL (0.6-1.3)
[2019-10-31 07:25] LABS: MAGNESIUM 1.6 mg/dL (1.8-2.4); PHOSPHORUS 4.4 mg/dL (2.5-4.9)
--- NOTE | 2019-10-31 07:25 | NUR ---
RECEIVED BEDSIDE REPORT FROM NIGHTSHIFT NURSE. PT RESTING IN BED. ABLE TO MAKE NEEDS KNOWN. RESPIRATIONS EVEN AND UNLABORED WITH NO SOB OR RESPIRATORY DISTRESS. SKIN WARM AND DRY TO TOUCH. IV SITE IN LEFT WRIST 24G IS CLEAN, DRY, AND INTACT. SAFETY MEASURES IN PLACE. WILL CONTINUE TO MONITOR
[2019-10-31 07:34] LABS: BASOPHILS # (AUTO) 0.1 K/uL (0.00-0.22); BASOPHILS % (AUTO) 1.2 % (0.0-2.0); EOSINOPHILS # (AUTO) 0.2 K/uL (0-0.4); EOSINOPHILS % (AUTO) 2.2 % (0.0-4.0); HEMATOCRIT 37.2 % (36-48); HEMOGLOBIN 12.2 g/dL (12.0-16.0); LYMPHOCYTES # (AUTO) 2.1 K/uL (2.5-16.5); LYMPHOCYTES % (AUTO) 27.7 % (20.5-51.1); MEAN CORPUSCULAR HEMOGLOBIN 28 pg (27-31); MEAN CORPUSCULAR HGB CONC 33 g/dL (33-37); MEAN CORPUSCULAR VOLUME 86.3 fL (80-94); MONOCYTES # (AUTO) 0.6 K/uL (0.8-1.0); MONOCYTES % (AUTO) 8.5 % (1.7-9.3); NEUTROPHILS # (AUTO) 4.5 K/uL (1.8-7.7); NEUTROPHILS % (AUTO) 60.4 % (42.2-75.2); PLATELET COUNT (AUTO) 290 K/uL (140-450); RED BLOOD CELL COUNT(AUTO) 4.32 MIL/uL (4.20-5.40); RED CELL DISTRIBUTION WIDTH 14.4 % (11.6-13.7); WHITE BLOOD COUNT (AUTO) 7.5 K/uL (4.8-10.8)
[2019-10-31 08:00] VITALS: BP 123/61
[2019-10-31] MEDS: VANCOMYCIN 1,000 MG in NACL 0.9% 250 ML IV SCH ×3 (08:47→23:33)
[2019-10-31] MEDS: metFORMIN 500 MG TAB PO SCH ×2 (08:47→20:51)
[2019-10-31] MEDS: LACTOBACILLUS RHAMNOSUS GG 1 EACH CAP PO SCH (08:47)
[2019-10-31] MEDS: DULoxetine 30 MG CAPDR PO SCH (08:48)
[2019-10-31] MEDS: MORPHINE TAB ER 15 MG TABER PO SCH ×3 (08:48→18:37)
[2019-10-31] MEDS: BACLOFEN 10 MG TAB PO SCH ×3 (08:48→18:36)
--- NOTE | 2019-10-31 08:59 | NUR ---
ADMINISTERED SCHED MED PRESCRIBED PER MD ORDER. PT TOLERATED WELL. MEDICATION EDUCATION PERFORMED. PT VERBALIZED UNDERSTANDING. SAFETY MEASURES IN PLACE. WILL CONTINUE TO MONITOR
--- NOTE | 2019-10-31 10:15 | NUR ---
PODIATRY AT BEDSIDE TO DO THE DRESSING CHANGE WELL ASSESSING THE PATIENT. PT TOLERATED WELL. SAFETY MEASURES IN PLACE. WILL CONTINUE TO MONITOR
[2019-10-31] MEDS ORDERED: MAGNESIUM OXIDE 400 MG TAB PO SCH (11:00)
--- NOTE | 2019-10-31 11:30 | NUR ---
PT BLOOD SUGAR IS 315. INSULIN WILL BE GIVEN WITH LUNCH. SAFETY MEASURES IN PLACE. WILL CONTINUE TO MONITOR
--- NOTE | 2019-10-31 11:52 | NUR ---
ADMINISTERED SCHED MED PRESCRIBED PER MD ORDER. PT TOLERATED WELL. MEDICATION EDUCATION PERFORMED. PT VERBALIZED UNDERSTANDING. SAFETY MEASURES IN PLACE. WILL CONTINUE TO MONITOR
--- NOTE | 2019-10-31 13:16 | NUR ---
ADMINISTERED SCHED MED PRESCRIBED PER MD ORDER. PT TOLERATED WELL. MEDICATION EDUCATION PERFORMED. PT VERBALIZED UNDERSTANDING. SAFETY MEASURES IN PLACE. WILL CONTINUE TO MONITOR
--- NOTE | 2019-10-31 15:12 | NUR ---
PT COMPLAINED OF SEVERE PAIN. PRN PAIN MEDICATION ADMINISTERED PRESCRIBED PER MD ORDER. PT TOLERATED WELL. MEDICATION EDUCATION PERFORMED. PT VERBALIZED UNDERSTANDING. SAFETY MEASURES IN PLACE. WILL CONTINUE TO MONITOR
[2019-10-31 16:00] VITALS: BP 126/60
--- NOTE | 2019-10-31 16:30 | NUR ---
PT BLOOD SUGAR IS 140. NO INSULIN COVERAGE NEEDED AT THIS TIME. SAFETY MEASURES IN PLACE. WILL CONTINUE TO MONITOR
--- NOTE | 2019-10-31 18:45 | NUR ---
ADMINISTERED SCHED MED PRESCRIBED PER MD ORDER. PT TOLERATED WELL. MEDICATION EDUCATION PERFORMED. PT VERBALIZED UNDERSTANDING. SAFETY MEASURES IN PLACE. WILL CONTINUE TO MONITOR
--- NOTE | 2019-10-31 19:19 | NUR ---
ENDORSED AT BEDSIDE TO NIGHTSHIFT NURSE. PT IS STABLE
--- NOTE | 2019-10-31 19:20 | NUR ---
RECEIVED FROM AM RN IN BED AWAKE AND ALERT. PT. DX. OF RIGHT FOOT CELLULITIS. SEEN BY CLERICAL PROOFREADER. PT. WITH IVF SITE TO LEFT FOREARM. PATENT AND NO S/S OF INFILTRATION. CALL LIGHT WITH IN REACH AND A/O X 4. ABLE TO VERBALIZE NEEDS WELL IN [place] AND ABLE TO CARRY A CONVERSATION WELL. ENCOURAGED TO CALL FOR ANY HELP SHE MAY NEED OR IF IN PAIN. 'OK'
[2019-10-31] MEDS: traZODone 50 MG TAB PO SCH (20:51)
[2019-10-31] MEDS: ATORVASTATIN 20 MG TAB PO SCH (20:52)
[2019-10-31 21:09] VITALS: BP 131/71
--- NOTE | 2019-10-31 22:30 | NUR ---
PT. ABLE TO WAKE UP EASILY . CALL LIGHT WITH IN REACH. NO COMPLAINTS . DRESSING TO RIGHT FOOT INTACT AND NO BLEEDING.
[2019-11-01] VITALS: BP 140/70
--- NOTE | 2019-11-01 00:19 | NUR ---
SLEEPING WELL. WOKE UP EASILY WHEN VITAL SIGNS WERE TAKEN. NO FURTHER COMPLAINTS DONE. CALL LIGHT WITH IN REACH.
--- NOTE | 2019-11-01 02:00 | NUR ---
SLEEPING AT THIS TIME.
[2019-11-01 05:06] VITALS: BP 138/72
[2019-11-01] MEDS: MORPHINE SULFATE 2 MG/ML SYR IVP PRN (05:11)
[2019-11-01] MEDS: BLOOD GLUCOSE MONITORING 1 DEV DEV FS SCH ×2 (05:21→12:15)
[2019-11-01] MEDS: INSULIN LISPRO SLIDING SCALE 100 UNITS/ML VIAL SUBQ PRN ×2 (05:22→12:17)
--- NOTE | 2019-11-01 05:37 | NUR ---
PT. REQUESTED FOR PAIN RELIEVER. ABLE TO VERBALIZE NEEDS WELL. MEDICATED REQUESTED. WENT BACK TO SLEEP AFTER. ABLE TO VERBALIZE NEEDS WELL. STATED SHE WANTS TO GO HOME TODAY. NO ADVERSE REACTIONS FROM IV ABT INFUSED.
--- NOTE | 2019-11-01 07:22 | NUR ---
ENDORSED TO AM RN FOR CONTINUITY OF CARE. SLEEPING AT THIS TIME. A/O X 4 AND ABLE TO VERBALIZE NEEDS WELL. ABLE TO USE CALL LIGHT FOR SIMPLE NEEDS .
--- NOTE | 2019-11-01 07:27 | NUR ---
RECEIVED BEDSIDE REPORT FROM NIGHTSHIFT NURSE. PT RESTING IN BED. ABLE TO MAKE NEEDS KNOWN. RESPIRATIONS EVEN AND UNLABORED WITH NO SOB OR RESPIRATORY DISTRESS. SKIN WARM AND DRY TO TOUCH. IV SITE IN LEFT WRIST 24G IS CLEAN, DRY, AND INTACT. SAFETY MEASURES IN PLACE WILL CONTINUE TO MONITOR
[2019-11-01 07:31] LABS: BASOPHILS # (AUTO) 0.1 K/uL (0.00-0.22); EOSINOPHILS # (AUTO) 0.2 K/uL (0-0.4); EOSINOPHILS % (AUTO) 2.2 % (0.0-4.0); HEMOGLOBIN 12.4 g/dL (12.0-16.0); LYMPHOCYTES # (AUTO) 2.1 K/uL (2.5-16.5); LYMPHOCYTES % (AUTO) 28.7 % (20.5-51.1); MEAN CORPUSCULAR HEMOGLOBIN 28 pg (27-31); MEAN CORPUSCULAR HGB CONC 33 g/dL (33-37); MEAN CORPUSCULAR VOLUME 86.1 fL (80-94); MONOCYTES # (AUTO) 0.6 K/uL (0.8-1.0); MONOCYTES % (AUTO) 8.3 % (1.7-9.3); NEUTROPHILS # (AUTO) 4.3 K/uL (1.8-7.7); NEUTROPHILS % (AUTO) 59.8 % (42.2-75.2); PLATELET COUNT (AUTO) 321 K/uL (140-450); RED BLOOD CELL COUNT(AUTO) 4.41 MIL/uL (4.20-5.40); RED CELL DISTRIBUTION WIDTH 14.1 % (11.6-13.7); WHITE BLOOD COUNT (AUTO) 7.2 K/uL (4.8-10.8)
[2019-11-01 07:49] LABS: ANION GAP 11.7 (8-16); CARBON DIOXIDE 29.2 mmol/L (21-32); CREATININE 0.7 mg/dL (0.6-1.3); POTASSIUM 3.9 mmol/L (3.5-5.1)
[2019-11-01 07:51] LABS: MAGNESIUM 1.6 mg/dL (1.8-2.4); PHOSPHORUS 4.5 mg/dL (2.5-4.9)
[2019-11-01 08:00] VITALS: BP 110/79
--- NOTE | 2019-11-01 08:50 | NUR ---
ADMINISTERED SCHED MED PRESCRIBED PER MD ORDER. PT TOLERATED WELL. MEDICATION EDUCATION PERFORMED. PT VERBALIZED UNDERSTANDING. SAFETY MEASURES IN PLACE. WILL CONTINUE TO MONITOR
[2019-11-01] MEDS: VANCOMYCIN 1,000 MG in NACL 0.9% 250 ML IV SCH ×2 (08:56→16:00)
[2019-11-01] MEDS: MORPHINE TAB ER 15 MG TABER PO SCH ×2 (09:03→12:20)
[2019-11-01] MEDS: metFORMIN 500 MG TAB PO SCH (09:04)
[2019-11-01] MEDS: BACLOFEN 10 MG TAB PO SCH ×2 (09:04→12:20)
[2019-11-01] MEDS: LACTOBACILLUS RHAMNOSUS GG 1 EACH CAP PO SCH (09:04)
[2019-11-01] MEDS: DULoxetine 30 MG CAPDR PO SCH (09:05)
--- NOTE | 2019-11-01 09:30 | NUR ---
PODIATRY AT BEDSIDE TO CHANGE DRESSING AND ASSESS PATIENT. PT TOLERATED WELL. SAFETY MEASURES IN PLACE
--- NOTE | 2019-11-01 11:15 | NUR ---
PT RESTING IN BED. ABLE TO MAKE NEEDS KNOWN. RESPIRATIONS EVEN AND UNLABORED WITH NO SOB OR RESPIRATORY DISTRESS. SKIN WARM AND DRY TO TOUCH. SAFETY MEASURES IN PLACE WILL CONTINUE TO MONITOR
--- NOTE | 2019-11-01 11:30 | NUR ---
PT BLOOD SUGAR IS 217. INSULIN WILL BE GIVEN PRESCRIBED PER MD ORDER WITH LUNCH. SAFETY MEASURES IN PLACE. WILL CONTINUE TO MONITOR
[2019-11-01] MEDS: NACL 0.9% 1,000 ML IV SCH (12:16)
--- NOTE | 2019-11-01 12:45 | NUR ---
ADMINISTERED SCHED MED PRESCRIBED PER MD ORDER. PT TOLERATED WELL. MEDICATION EDUCATION PERFORMED. PT VERBALIZED UNDERSTANDING. SAFETY MEASURES IN PLACE. WILL CONTINUE TO MONITOR
--- NOTE | 2019-11-01 14:15 | NUR ---
PT IS AWARE OF DISCHARGE ORDER AND WOULD LIKE TO LEAVE BEFORE LUNCH. SAFETY MEAURES IN PLACE. WILL CONTINUE TO MONITOR
[2019-11-01] MEDS ORDERED: CLIN300C5 PO (14:34)
[2019-11-01] MEDS ORDERED: ASCO1CAP75 PO (14:34)
[2019-11-01 14:51] VITALS: BP 110/79
--- NOTE | 2019-11-01 15:49 | NUR ---
PT SAID THAT HER RIDE IS RUNNING LATE AND SHOULD BE HERE BEFORE 5PM. SAFETY MEASURES IN PLACE. WILL CONTINUE TO MONITOR
--- NOTE | 2019-11-01 16:45 | NUR ---
WENT OVER DISCHARGE INSTRUCTIONS WITH PATIENT. PT SIGNED APPROPRIATE DOCUMENTS. PT RECEIVED PNA VACCINE IN THE SUMMER OF 2018 AND DID NOT WANT THE FLU VACCINE BECAUSE SHE WANTS IT FROM HER PCP. INSTRUCTED PT TO VISIT ED FOR ANY SIGNS OF DISTRESS. PT VERBALIZED UNDERSTANDING. INTACT IV CANNULA, ALLERGY BAND, AND ID BAND REMOVED. PT CHANGED INTO HER OWN CLOTHING AND GATHERED HER BELONGINGS. PT IS GOING HOME VIA PRIVATE VEHICLE. PT IS STABLE
== END 2019-11-01 16:45 | disposition home or self-care (01) | DRG 674 ==
LOC: MED 20:17 → MTU 22:28
PROVIDERS: ADMIT General Practice; ATTEND General Practice
PROC: 0JBQ0ZZ Excision of Right Foot Subcutaneous Tissue and Fascia, Open Approach (ICD-10-PCS; 2019-10-28)
PROC: 0J9R0ZZ Drainage of Left Foot Subcutaneous Tissue and Fascia, Open Approach (ICD-10-PCS; 2019-10-28)
PROC: 0J9Q0ZZ Drainage of Right Foot Subcutaneous Tissue and Fascia, Open Approach (ICD-10-PCS; 2019-10-28)
PROC: 0JBR0ZZ Excision of Left Foot Subcutaneous Tissue and Fascia, Open Approach (ICD-10-PCS; principal; 2019-10-28 09:55)
DX: T83.518A Infection and inflammatory reaction due to other urinary catheter, initial encounter (principal); N39.0 Urinary tract infection, site not specified; D68.59 Other primary thrombophilia; E44.1 Mild protein-calorie malnutrition; L02.611 Cutaneous abscess of right foot; L97.518 Non-pressure chronic ulcer of other part of right foot with other specified severity; L03.031 Cellulitis of right toe; Z68.38 Body mass index [BMI] 38.0-38.9, adult; Z88.5 Allergy status to narcotic agent; Z91.018 Allergy to other foods; Z91.048 Other nonmedicinal substance allergy status; E03.9 Hypothyroidism, unspecified; E11.51 Type 2 diabetes mellitus with diabetic peripheral angiopathy without gangrene; E66.9 Obesity, unspecified; E78.00 Pure hypercholesterolemia, unspecified; M79.7 Fibromyalgia; M65.9 Synovitis and tenosynovitis, unspecified; I10 Essential (primary) hypertension; E11.40 Type 2 diabetes mellitus with diabetic neuropathy, unspecified; B37.3 Candidiasis of vulva and vagina; E83.42 Hypomagnesemia; E78.5 Hyperlipidemia, unspecified; Z82.49 Family history of ischemic heart disease and other diseases of the circulatory system; Z83.3 Family history of diabetes mellitus; Z87.891 Personal history of nicotine dependence; Z90.710 Acquired absence of both cervix and uterus; Z60.2 Problems related to living alone; L84 Corns and callosities; Y92.89 Other specified places as the place of occurrence of the external cause
CPT/HCPCS: 36415; 71045; 73630; 73660; 76881; 80048; 80053; 80202; 80305; 81001; 82948; 83036; 83605; 83690; 83735; 84100; 84443; 85025; 85610; 85730; 87040; 87070; 87075; 87081; 87086; 87205; 88304; 93005; 93925; 93970; 96365; 96366; 96375; 97116; 97161-GP; 97164; 99291; J0696; J1644; J2001; J2250; J2270; J2405; J2704; J3010; J3370; J3490; J7030; J7060; Q0092